=== PATIENT | female | born 1985 | race Two or more races ===

== ENCOUNTER 2020-09-11 21:31 | Inpatient (IN) | payer MEDICAID ==
[~2020-09-11] VITALS: Ht 162.6 cm; Wt 87.3 kg
[2020-09-11] MEDS ORDERED: MAGNESIUM HYDROXIDE 30 ML UDC PO PRN (23:00)
[2020-09-11] MEDS ORDERED: MORPHINE SULFATE INJ 2 MG/ML DISP.SYRIN IV PRN (23:00)
[2020-09-11] MEDS ORDERED: MAG HYDROX/AL HYDROX/SIMETH 30 ML UDC PO PRN (23:00)
[2020-09-11] MEDS ORDERED: HYDROCODONE/APAP 5/325MG TABLET PO PRN (23:00)
[2020-09-11] MEDS ORDERED: ONDANSETRON HCL/PF 4 MG/2 ML VIAL IVP PRN (23:00)
[2020-09-11] MEDS ORDERED: Z GUARD REMEDY 2 OZ OINT TP PRN (23:00)
[2020-09-11] MEDS ORDERED: ACETAMINOPHEN 325 MG TABLET PO PRN (23:00)
[2020-09-11] MEDS ORDERED: ZOLPIDEM TARTRATE 5 MG TABLET PO PRN (23:00)
[2020-09-12] VITALS (8 sets, daily range): BP systolic 105–131; BP diastolic 64–90
--- NOTE | 2020-09-12 | NUR ---
tele research hydraulic engineer initial notes received pt as direct admit from [place] via [place] . DX of Syncope. Pt is alert oriented , ambulatory. Pt states that she had head ache then like fell and hit her head against the brick wall the she started vomiting a lot that why her family called 911. Denies any pain or any discomfort at this time. Aware where she at and applied tele monitor and told her too what the purpose of it and patient understood well. Snacks also served . kept her warm and comfortable at all times. place call light at reach. will continue monitoring.
[2020-09-12] MEDS: IV NS 0.9% 1,000 ML IV PRN ×2 (06:19→15:03)
[2020-09-12 06:26] LABS: BASOPHILS # (AUTO) 0.1 /CMM (0.0-0.2); BASOPHILS % (AUTO) 0.7 % (0.0-2.0); EOSINOPHILS % (AUTO) 1.7 % (0.0-6.0); HEMATOCRIT 38 % (33-45); HEMOGLOBIN 12.9 g/dL (11.5-14.8); LYMPHOCYTES # (AUTO) 3.1 /CMM (0.8-4.8); LYMPHOCYTES % (AUTO) 28.5 % (20.0-44.0); MEAN CORPUSCULAR HGB CONC 34 g/dl (31.0-36.0); MEAN CORPUSCULAR VOLUME 91 fL (82-100); MONOCYTES # (AUTO) 0.8 /CMM (0.1-1.30); MONOCYTES % (AUTO) 7.6 % (2.0-12.0); NEUTROPHILS # (AUTO) 6.7 /CMM (1.8-8.9); NEUTROPHILS % (AUTO) 61.5 % (43.0-81.0); PLATELET COUNT (AUTO) 320 /CMM (150-450); RED BLOOD CELL COUNT(AUTO) 4.23 MIL/uL (4.0-5.2); WHITE BLOOD COUNT (AUTO) 10.9 K/uL (4.3-11.0)
[2020-09-12 06:42] LABS: CALCIUM, SERUM 8.5 mg/dL (8.5-10.1); CREATININE 0.7 mg/dL (0.6-1.3); MAGNESIUM 2.3 mg/dL (1.8-2.4); POTASSIUM 4.1 mmol/L (3.5-5.1)
--- NOTE | 2020-09-12 06:42 | NUR ---
Tele template cutter closing notes pt awake at this time, slept well and she seems refresh. Denies any pain or any discomfort. No signs of any N/V also. tele Sinus Rhythm heart rate 76 per monitor. Pt states "thank you " and wish that she will be discharge today. kept her warm and comfortable at all times. place call light at reach. will endorse to am nurse for continuity of care.
[2020-09-12 06:58] LABS: THYROID STIMULATING HORMONE 1.689 uIU/mL (0.358-3.74)
--- NOTE | 2020-09-12 08:13 | NUR ---
PRODUCTION ENGINE REPAIRER OPENING NOTES: RECEIVED PATIENT IN BED, AWAKE. DENIES PAIN, NO SIGNS OF DISTRESS OR DISCOMFORT. CALL LIGHT WITHIN REACH. WILL CONTINUE TO MONITOR.
[2020-09-12] MEDS: PANTOPRAZOLE 40 MG TABLET.DR PO SCH (08:40)
[2020-09-12] MEDS ORDERED: LEVO150T8 PO (08:41)
[2020-09-12] MEDS: LEVOTHYROXINE SODIUM 75 MCG TABLET PO SCH (10:32)
--- NOTE | 2020-09-12 18:45 | NUR ---
MS RN CLOSING NOTES: PATIENT CURRENTLY RESTING IN BED. AWAKE, A/O X4. NO PAIN NOTED. NO S/S OF DISTRESS NOTED. IV IN R HAND #20 - RUNNING NS @ 125ML/HR. PT EVAL WAITING. LABS IN AM - DDIMER, TROPONIN, HGBA1C. TO BE DISCHARGED TOMORROW PENDING [facility]. BED LOCKED AND IN LOWEST POSITION. SIDE RAILS X2. CALL LIGHT WITHIN REACH. WILL ENDORSE TO ORTHOPEDIC SHOES SALESPERSON NURSE.
--- NOTE | 2020-09-12 19:30 | NUR ---
ms cricket initial notes received report from am nurse and seen pt in bed awake and alert watching tv at this time.denies any pain or any discomfort. IVF still infusing at 125ml/hr. kept her warm and comfortable at all times. will continue monitoring.
[2020-09-12] MEDS ORDERED: ATORVASTATIN 10 MG TABLET PO SCH (22:00)
--- NOTE | 2020-09-13 | NUR ---
ms firebrick layer helper notes pt sleeping comfortably in bed without any distress or any discomfort noted. will continue monitoring.
--- NOTE | 2020-09-13 07:12 | NUR ---
MS parachute cushion installer closing notes pt remain resting with eyes closed but arouse easily. denies any discomfort. She only request today is to be going home. Stable throughout the night and slept well. kept her warm and comfortable at all times. will endorse to am nurse for continuity of care. place call light at reach.
[2020-09-13] MEDS ORDERED: PANTOPRAZOLE 40 MG TABLET.DR PO SCH (07:30)
[2020-09-13 08:00] VITALS: BP 127/72
--- NOTE | 2020-09-13 08:00 | NUR ---
RN Opening note Received patient in bed, AO x 4, able to responds all stimuli. Denies distress or pain. Respiratory even and unlabored in room air, no sob. Skin is warm to touch, keep clean/dry. Keep elevated HOB for ensure airway and aspiration precaution,also lowest bed position for safety. Call light within reach, will continue to monitor.
[2020-09-13] MEDS: LEVOTHYROXINE SODIUM 75 MCG TABLET PO SCH (08:55)
[2020-09-13] MEDS: PANTOPRAZOLE 40 MG TABLET.DR PO SCH (08:55)
[2020-09-13] MEDS ORDERED: ATOR10TA PO (13:36)
[2020-09-13] MEDS ORDERED: PANT40TA2 PO (13:36)
--- NOTE | 2020-09-13 14:37 | NUR ---
Patient discharge to home, given discharge instruction include new medications, follow up primary MD. Patient verbally understanding, denies distress, in stable.
== END 2020-09-13 14:50 | disposition home or self-care (01) | DRG 48 ==
LOC: TELE 23:56 → MED 09-12 14:42
PROVIDERS: ADMIT Nurse Practitioner Acute Care; ATTEND Nurse Practitioner Acute Care
DX: G90.8 Other disorders of autonomic nervous system (principal); E78.5 Hyperlipidemia, unspecified; E89.0 Postprocedural hypothyroidism; K21.9 Gastro-esophageal reflux disease without esophagitis; Z83.3 Family history of diabetes mellitus; Z85.850 Personal history of malignant neoplasm of thyroid
CPT/HCPCS: 36415; 80048-TC; 80061-TC; 83735-TC; 84100-TC; 84443-TC; 84484-TC; 85025-TC; 85378-TC; 87081-TC; 97116-TC; 97530-TC; G0378; J7030